=== PATIENT | male | born 1935 | race Caucasian/White ===

== ENCOUNTER 2020-07-10 07:30 | Observation (INO) ==
[~2020-07-10 07:30] MED LIST: Buffered Lidocaine 1% SYRIN 1 ml INTRADERM ONE; Bupivacaine 0.5% SDV PF 30ML VIAL ONE; Dexamethasone IV 4 MG/ML VIAL 1 ml VIAL ONE; Lactated Ringers 1000 ml BAG 1,000 ML IV SCH; Propofol 0 MG/0 ML BTL ONE; Ropivacaine 5 MG/ML 20 ML VIAL 0.5% (100 MG) ONE; fentaNYL 100 mcg/2 ml 50 MCG/ML VIAL ONE
[2020-07-10] MEDS ORDERED: fentaNYL 100 mcg/2 ml 50 MCG/ML VIAL ONE (07:33)
[2020-07-10] MEDS ORDERED: Rocuronium 50 mg VIAL 10 mg/ml 5 ml VIAL (50 mg) ONE (07:33)
[2020-07-10] MEDS ORDERED: Lidocaine 2% PF 5 ML VIAL ONE (07:36)
[2020-07-10] MEDS ORDERED: Dexamethasone IV 4 MG/ML VIAL 1 ml VIAL ONE (09:19)
[2020-07-10] MEDS ORDERED: Bupivacaine 0.5% SDV PF 30ML VIAL ONE (09:19)
[2020-07-10] MEDS ORDERED: ceFAZolin 2 GM PREMIX 2 GM/50 ML BAG ONE (10:11)
[2020-07-10] MEDS ORDERED: Ropivacaine 5 MG/ML 20 ML VIAL 0.5% (100 MG) ONE (11:23)
[2020-07-10] MEDS ORDERED: Midazolam 2 mg/2 ml VIAL 1 mg/ml 2 ml VIAL (2 mg) ONE (11:23)
[2020-07-10] MEDS ORDERED: Propofol 10 MG/ML 20 ML BTL ONE ×4 (12:46→15:11)
[2020-07-10] MEDS ORDERED: Ondansetron 4 mg VIAL 2 MG/ML 2 ml VIAL ONE (12:46)
[2020-07-10] MEDS ORDERED: Naloxone 0.4 mg VIAL 0.4 mg/ml 1 ml VIAL IV PRN (15:22)
[2020-07-10] MEDS ORDERED: diPHENhydraMINE IV 50 MG/ML 1 ml VIAL (BENADRYL) IV PRN ×2 (15:22→15:41)
[2020-07-10] MEDS ORDERED: fentaNYL 100 mcg/2 ml 50 MCG/ML VIAL IV PRN (15:22)
[2020-07-10] MEDS ORDERED: Ondansetron 4 mg VIAL 2 MG/ML 2 ml VIAL IV PRN (15:41)
[2020-07-10] MEDS ORDERED: Magnesium Hydroxide LIQ 30 ML UDC PO PRN (15:41)
[2020-07-10] MEDS ORDERED: Lactulose 30 ml UDC PO PRN (15:41)
[2020-07-10] MEDS ORDERED: diPHENhydraMINE 25 mg TAB PO PRN (15:41)
[2020-07-10] MEDS ORDERED: Morphine 2 MG/ML SYRINGE IV PRN (15:41)
[2020-07-10] MEDS ORDERED: Ondansetron ODT 4 mg TAB 4 MG TAB PO PRN (15:41)
[2020-07-10] MEDS ORDERED: ceFAZolin 1 GM ADVAN 1 GM in NS 0.9% 50 ML 50 ML IVPB SCH (16:00)
[2020-07-10] MEDS ORDERED: Lactated Ringers 1000 ml BAG 1,000 ML IV SCH (16:00)
[2020-07-10] MEDS ORDERED: hydrALAZINE 20 mg/ml 1 ML Vial IV ONE (16:53)
[2020-07-10] MEDS: hydrALAZINE 20 mg/ml 1 ML Vial IV IV SLOW PU ONE ×2 (16:57→17:13)
[2020-07-10] MEDS: Mometasone/Formoter 200/5 MDI INH SCH (20:03)
[2020-07-10] MEDS: ceFAZolin 1 GM ADVAN 1 GM in NS 0.9% 50 ML 50 ML IVPB SCH (20:11)
[2020-07-10] MEDS: Magnesium Hydroxide LIQ 30 ML UDC PO SCH (20:11)
[2020-07-11] MEDS: ceFAZolin 1 GM ADVAN 1 GM in NS 0.9% 50 ML 50 ML IVPB SCH ×2 (03:45→12:34)
[2020-07-11 06:31] LABS: ABS Lymphocytes 0.8 10^3/ul (1.0-4.8); ABS Monocytes 0.9 10^3/ul (0-0.8); ABS Neutrophils 6.2 10^3/ul (1.5-7.7); Hematocrit 40 % (42-52); Hemoglobin 13.6 g/dL (14.0-18.0); Mean Corpuscular HGB Conc 34 g/dL (31-36); Mean Corpuscular Hemoglobin 31 pg (27-31); Mean Corpuscular Volume 91 fL (80-94); Mean Platelet Volume 8.1 fL (7.4-10.4); Platelet Count 212 10^3/uL (150-450); Red Blood Count 4.43 10^6 /uL (4.18-5.48); Red Cell Distribution Width 14 % (10-15); White Blood Count 7.9 10^3/uL (3.5-10.8)
[2020-07-11 06:52] LABS: Calcium 8.7 mg/dL (8.6-10.3); Potassium 4.1 mmol/L (3.5-5.0)
[2020-07-11 06:57] LABS: BUN/Creatinine Ratio 26.3 (8-20); EGFR African American 111.4 (>60); EGFR Non-African American 92.1 (>60)
[2020-07-11] MEDS: Mometasone/Formoter 200/5 MDI INH SCH (08:22)
[2020-07-11] MEDS: Magnesium Hydroxide LIQ 30 ML UDC PO SCH (08:42)
[2020-07-11] MEDS ORDERED: Vitamin THERAPEUTIC TAB PO SCH (09:00)
[2020-07-11 15:56] VITALS: BP 151/74
== END 2020-07-11 16:15 | disposition home or self-care (01) ==
LOC: AA 09:29 → INTOOBSV 09:29 → SSU 15:41
PROVIDERS: ADMIT Orthopaedic Surgery Adult Reconstructive Orthopaedic Surgery; ATTEND Orthopaedic Surgery Adult Reconstructive Orthopaedic Surgery